=== PATIENT | male | born 2005 | race Caucasian/White ===

== ENCOUNTER 2025-04-27 14:04 | Outpatient (CLI) | payer OTHER, SELFPAY ==
[2025-04-27 17:16] LABS: Chloride* 101 mmol/L (96-114); Sodium* 134 mmol/L (135-149)
[2025-04-27 17:17] LABS: Potassium* 4.6 mmol/L (3.6-5.1)
[2025-04-27 17:19] LABS: Blood Urea Nitrogen* 14 mg/dL (5-24); Creatinine* 0.8 mg/dL (0.5-1.5); Estimated Glomerular Filt Rate 130 ml/min
[2025-04-27 17:20] LABS: Anion Gap 6 mEq/L (7-15); Calcium* 9.7 mg/dL (8.4-10.6); Carbon Dioxide* 27 mmol/L (20-32); Glucose* 106 mg/dL (60-115)
[2025-04-29 11:26] LABS: Testosterone, Adult Male 9 ng/dL (300-1080)
== END 2025-04-27 14:05 | disposition home or self-care (01) ==
LOC: NPINS 14:12
PROVIDERS: PCP Pediatrics; Visit Provider Nurse Practitioner Family
DX: Z79.899 Other long term (current) drug therapy (principal); Z79.818 Long term (current) use of other agents affecting estrogen receptors and estrogen levels
CPT/HCPCS: 80048; 82670; 84403